=== PATIENT | female | born 1970 | race Caucasian/White ===

== ENCOUNTER 2018-11-24 05:47 | Day surgery (SDC) | payer OTHER, MEDICAID ==
[2018-11-24] MEDS ORDERED: LIDOCAINE 4% SOLUTION 50 ML BTL (07:44)
[2018-11-24] MEDS ORDERED: FENTAnyl 50 MCG/ML VIAL (08:26)
[2018-11-24] MEDS ORDERED: MIDAZOLAM 1 MG/ML 2 ML INJ ×3 (08:26)
== END 2018-11-24 14:27 | disposition home or self-care (01) ==
LOC: GIL 05:47
DX: Z12.11 Encounter for screening for malignant neoplasm of colon (principal); K21.0 Gastro-esophageal reflux disease with esophagitis; K29.50 Unspecified chronic gastritis without bleeding; R10.31 Right lower quadrant pain; R10.11 Right upper quadrant pain
CPT/HCPCS: 43239; 88305; 88312; 88313